=== PATIENT | female | born 1955 | race Caucasian/White ===

== ENCOUNTER → 2018-05-16 09:17 | Outpatient (CLI) | payer OTHER ==
[2015-10-19 10:05] VITALS: BMI 29.1
--- NOTE | ~2018-05-16 | EC ---
PATIENT:KASIA SANCHEZ DATE OF SERVICE: 05/16/18 SEX: F MEDICAL RECORD: [id number] DATE OF : [birth year] LOCATION:[facility] AGE OF PATIENT: 62 ADMISSION DATE: 05/16/18 REFERRING PHYSICIAN: INTERPRETING PHYSICIAN: AUDRA JAMISON MD ECHOCARDIOGRAM REPORT ECHO CHARGES 4 ECHO COMPLETE Date: 05/16/18 CLINICAL DIAGNOSIS: DYSPNEA/TACHYCARDIA/CP/ PALPITATIONS ECHOCARDIOGRAPHIC MEASUREMENTS (adult normal given) AC root (d.<3.7cm) 2.7 cm LV Septum d (<1.2 cm> 1.0 cm Valve Excursion 2.0 cm LV Septum (systole) 1.8 cm Left Atria (s.<4.0cm> 3.0 cm LVPW d(<1.2cm) 1.2 cm RV (d.<2.3cm) 2.5 cm LVPW (sytole) 1.8 cm LV diastole(<5.6CM) 5.6 cm MV E-F(>70mm/sec) cm LV systole 3.2 cm LVOT Diameter 1.6 cm MV exc.(>10mm) cm Est.ejection fraction (50-75%) % DOPPLER: LVIT cm/sec A 74.0 cm/sec E 145 cm/sec LA cm/sec RVSP 34.3 mmHg LVOT 88.0 cm/sec AOP1/2T 476.0m/s Asc. Ao 159 cm/sec RVOT 57.0 cm/sec RA cm/sec PA 80.0 cm/sec AV Gradient Peak 10.1 mmHg AV Mean 4.9 mmHg AV Area 1.2 cm MV Gradient Peak 3.3 mmHg MV Mean 1.3 mmHg MV Area cm COMMENTS: Family Resource Specialist: 1 ANGY GARCIAOE Liner Assembler: 4 Dr. Jamison TAPE# PACS Pericardial Effusion N DATE OF SERVICE: PROCEDURE: Transthoracic echocardiogram. FINDINGS: 1. Left ventricle is mildly dilated end-diastolic diameters and has an ejection fraction that is preserved at 50% to 55%. There are no obvious regional wall motion abnormalities. 2. The right ventricle appears to be normal size, structure and function. 3. The left atrium is normal. ECHOCARDIOGRAM REPORT [id number] KASIA SANCHEZ 4. The aortic valve is normal. 5. The mitral valve has mild to moderate mitral regurgitation, centralized. 6. The tricuspid valve has mild tricuspid regurgitation. RVSP is 34 mmHg. 7. The right atrium is normal. 8. The pulmonic valve has trace pulmonic insufficiency. 9. The aortic valve has moderate aortic insufficiency. The pressure half time is 476. IMPRESSION: The patient has evidence of mild left ventricular hypertrophy, mild left ventricular end-diastolic dilatation with moderate aortic insufficiency. TRANSINT:[id number] Voice Confirmation ID: [id number] DOCUMENT ID: [id number] AUDRA JAMISON MD at 0849 CC: [id number] DICTATION DATE: 05/16/18 1346 AUTOMATIC SPINNING LATHE SETTER: 05/16/18 1354 DEP CLI 05/16/18 [id number] [place] [address]
[~2018-05-16 09:17] MED LIST: AZO; BAYER CHEWABLE81 MG PO; CYCLOBENZAPRINE10 MG PO; DESERYL100 MG PO; DOXEPIN HCL10 MG PO; EFFEXOR75 MG PO; ESTRACE1 MG PO; GABAPENTIN100 MG PO; GLUCOPHAGE500 MG PO; HYDROCODONE-APA1 TAB PO; LAMISIL250 MG PO; LIPITOR20 MG PO; MAXZIDE 75/501 TAB PO; PRILOSEC20 MG PO; PROMETRIUM100 MG PO; PROVENTIL/2.5 MG/3 M INH; SPIRIVA18 MCG INH; VENTOLIN HFA18 GM INH; VITAMIN D2000 UNIT PO; XANAX0.5 MG PO
== END | disposition home or self-care (01) ==
LOC: D.ECHO 09:00
DX: R06.02 Shortness of breath (principal); R00.0 Tachycardia, unspecified; R07.9 Chest pain, unspecified; R00.2 Palpitations

== ENCOUNTER 2018-11-18 18:59 | Outpatient (CLI) | payer OTHER ==
[2015-10-19 10:05] VITALS: BMI 29.1
== END 2018-11-18 19:00 | disposition home or self-care (01) ==
LOC: D.MAMMO 18:59
PROVIDERS: ATTEND Family Medicine
DX: Z12.31 Encounter for screening mammogram for malignant neoplasm of breast (principal)

== ENCOUNTER 2019-01-27 09:00 | Outpatient (CLI) | payer OTHER ==
[2015-10-19 10:05] VITALS: BMI 29.1
== END 2019-01-27 19:30 | disposition home or self-care (01) ==
LOC: D.MAMMO 09:00
PROVIDERS: ATTEND Family Medicine
DX: R92.8 Other abnormal and inconclusive findings on diagnostic imaging of breast (principal)